=== PATIENT | male | born 1990 | race Caucasian/White ===

== ENCOUNTER 2017-07-12 21:23 | Emergency (ER) | payer SELFPAY ==
--- NOTE | 2017-07-12 22:50 | EKG REPORT ---
SEVERITY:- NORMAL ECG - SINUS RHYTHM : Confirmed by: Ira Perez 12-Jul-2017 22:49:48
--- NOTE | 2017-07-12 22:55 | ER Document Report ---
ED General - General Chief Complaint: Chest Pain Stated Complaint: CHEST PAIN Time Seen by Provider: 07/12/17 22:44 Notes: Patient is a 27-year-old male comes emergency department for chief complaint of chest pain. Symptoms started yesterday, has become more constant. He describes the pain as a sharp sensation starting near his left lower ribs and working its way up up his left side towards his neck and then down towards underneath his armpit. He states it feels like it is internal. It is somewhat worse when moving his left arm. He denies trauma, cough, shortness of breath, recent fever or cold, nausea or vomiting. Denies change with eating other than feeling full. He denies any daily medications. He chews dip, does not smoke, denies alcohol, denies recreational drug abuse. He denies any personal past medical history, he denies any history of early cardiac disease or blood clots in the family. - Related Data Allergies/Adverse Reactions: azithromycin Allergy (Verified 07/12/17 22:46) erythromycin base Allergy (Verified 07/12/17 22:46) Past Medical History - General Information source: Patient - Social History Smoking Status: Never Smoker Frequency of alcohol use: None Drug Abuse: None Lives with: Family Family History: Reviewed & Not Pertinent Patient has suicidal ideation: No Patient has homicidal ideation: No - Medical History Medical History: Negative Renal/ Medical History: Denies: Hx Peritoneal Dialysis Surgical Hx: Negative - Immunizations Immunizations up to date: Yes Hx Diphtheria, Pertussis, Tetanus Vaccination: Yes Review of Systems - Review of Systems Constitutional: No symptoms reported EENT: No symptoms reported Cardiovascular: See HPI Respiratory: See HPI Gastrointestinal: No symptoms reported Genitourinary: No symptoms reported Male Genitourinary: No symptoms reported Musculoskeletal: See HPI Skin: No symptoms reported Hematologic/Lymphatic: No symptoms reported Neurological/Psychological: No symptoms reported Physical Exam - Vital signs Vitals: Temp Pulse Resp BP Pulse Ox 98.8 F 54 L 16 120/65 99 07/12/17 21:41 07/12/17 21:41 07/12/17 21:41 07/12/17 21:41 07/12/17 21:41 Interpretation: Normal - General General appearance: Appears well, Alert - HEENT Head: Normocephalic, Atraumatic Eyes: Normal Pupils: PERRL - Respiratory Respiratory status: No respiratory distress Chest status: Other - Patient seems to have mild tenderness when moving his left arm and range of motion, I do not appreciate any specific palpable tenderness over the chest Breath sounds: Normal Chest palpation: Normal - Cardiovascular Rhythm: Regular, Bradycardia Heart sounds: Normal auscultation, S1 appreciated, S2 appreciated Murmur: No - Abdominal Inspection: Normal Distension: No distension Bowel sounds: Normal Tenderness: Nontender. No: Tender, Guarding Organomegaly: No organomegaly - Back Back: Normal, Nontender. No: Tender, Vertebra tenderness - Extremities General upper extremity: Normal inspection, Nontender, Normal color, Normal ROM , Normal temperature General lower extremity: Normal inspection, Nontender, Normal color, Normal ROM , Normal temperature, Normal weight bearing. No: John's sign - Neurological Neuro grossly intact: Yes Cognition: Normal Orientation: AAOx4 Burns Coma Scale Eye Opening: Spontaneous Sung Coma Scale Verbal: Oriented Burns Coma Scale Motor: Obeys Commands Sung Coma Scale Total: 15 Speech: Normal Motor strength normal: LUE, RUE, LLE, RLE Sensory: Normal - Psychological Associated symptoms: Normal affect, Normal mood - Skin Skin Temperature: Warm Skin Moisture: Dry Skin Color: Normal Course - Re-evaluation Re-evalutation: EKG shows sinus rhythm with no T-wave inversions or ST segment changes in leads. Chest x-ray unremarkable. Patient seems to not have pain on palpation on exam, as a result CBC, chemistry, troponin were run. All of these are unremarkable. Urine drug screen is negative. Patient tells me now that when he took 400 mg of ibuprofen pain resolved but then it came back and he came in for evaluation. Based on his negative workup, worst pain on movement, and this reported history I strongly believe this is musculoskeletal. He states he wants to continue taking ibuprofen, he was prescribed this. Discussed follow-up instructions, return precautions. Patient states understanding and agreement. - Vital Signs Vital signs: Temp Pulse Resp BP Pulse Ox 98.8 F 54 L 21 H 113/68 97 07/12/17 21:41 07/12/17 21:41 07/13/17 01:02 07/13/17 01:02 07/13/17 01:02 - Laboratory Result Diagrams: 07/12/17 23:25 07/12/17 23:25 Discharge - Discharge Clinical Impression: Chest pain Qualifiers: Chest pain type: unspecified Qualified Code(s): R07.9 - Chest pain, unspecified Condition: Stable Disposition: HOME, SELF-CARE Additional Instructions: Your EKG, chest x-ray, and workup did not show any concerning abnormalities. Based on your examination and symptoms this appears to be musculoskeletal. I recommend taking the ibuprofen prescribed with food, stay hydrated, avoid intense lifting more intense physical activity until symptoms improve or resolve. Follow-up with primary care. Return for any concerning or worsening symptoms including difficulty breathing, vomiting, fever, or any other concerning symptoms. Prescriptions: Ibuprofen 800 mg PO Q8 PRN #30 tablet PRN Reason: Forms: Return to Work
[2017-07-12 23:41] LABS: ABSOLUTE EOSINOPHILS # (AUTO) 0.2 10^3/uL (0.0-0.6); ABSOLUTE LYMPHOCYTES (AUTO) 2.3 10^3/uL (0.5-4.7); ABSOLUTE MONOCYTES (AUTO) 0.8 10^3/uL (0.1-1.4); ABSOLUTE NEUT (AUTO) 4.5 10^3/uL (1.7-8.2); BASOPHILS % (AUTO) 0.5 % (0-2); EOSINOPHILS % (AUTO) 2.3 % (0-6); HEMATOCRIT 40.3 % (37.9-51.0); HEMOGLOBIN 14.3 g/dL (13.5-17.0); HGB HCT DIFFERENCE 2.6; LYMPHOCYTES % (AUTO) 29.8 % (13-45); MEAN CORPUSCULAR HEMOGLOBIN 32.1 pg (27.0-33.4); MEAN CORPUSCULAR HGB CONC 35.5 g/dL (32.0-36.0); MEAN CORPUSCULAR VOLUME 91 fl (80-97); MONOCYTES % (AUTO) 10.2 % (3-13); RED BLOOD COUNT 4.45 10^6/uL (4.35-5.55); RED CELL DISTRIBUTION WIDTH 12.9 % (11.5-14.0); SEGMENTED NEUTROPHILS % (AUTO) 57.2 % (42-78); WHITE BLOOD COUNT 7.9 10^3/uL (4.0-10.5)
[2017-07-12 23:49] LABS: ALANINE AMINOTRANSFERASE 61 U/L (21-72); ALBUMIN 4.2 g/dL (3.5-5.0); ALKALINE PHOSPHATASE 59 U/L (38-126); ANION GAP 10 (5-19); ASPARTATE AMINO TRANSFERASE 24 U/L (17-59); BILIRUBIN,DIRECT 0.4 mg/dL (0.0-0.4); BILIRUBIN,TOTAL 0.6 mg/dL (0.2-1.3); BLOOD UREA NITROGEN 15 mg/dL (7-20); CALCIUM 9.7 mg/dL (8.4-10.2); CARBON DIOXIDE 28 mmol/L (22-30); CHLORIDE 104 mmol/L (98-107); CREATININE RESULT 0.84 mg/dL (0.52-1.25); GLUCOSE 96 mg/dL (75-110); POTASSIUM 3.8 mmol/L (3.6-5.0); SODIUM 142.2 mmol/L (137-145)
[2017-07-13 00:39] LABS: URINE BARBITURATES SCREEN NEGATIVE; URINE METHADONE SCREEN NEGATIVE; URINE OPIATES LOW NEGATIVE; URINE PHENCYCLIDINE SCREEN NEGATIVE
--- NOTE | 2017-07-13 01:28 | RADIOLOGY REPORT (SQ) ---
EXAM DESCRIPTION: CHEST PA/LAT CLINICAL HISTORY: 27 years, Male, chest pain COMPARISON: None. NUMBER OF VIEWS: Two TECHNIQUE: PA and lateral. LIMITATIONS: None. FINDINGS: Adequate lung volumes, clear parenchyma, normal cardiac silhouette. Intact bony thorax. IMPRESSION: Normal chest radiographs. 2011 [employer]- All Rights Reserved
[2017-07-13 01:41] VITALS: BP 113/68
== END 2017-07-13 01:15 | disposition home or self-care (01) ==
LOC: ER 21:23
DX: R07.9 Chest pain, unspecified (principal); Z88.1 Allergy status to other antibiotic agents
CPT/HCPCS: 36415; 71020; 80053; 80307; 84484; 85025; 93005; 93010; 99285

== ENCOUNTER 2017-10-07 15:48 | Emergency (ER) | payer OTHER ==
--- NOTE | 2017-10-07 16:17 | ER Document Report ---
ED Medical Screen (RME) - General Chief Complaint: Chest Pain Stated Complaint: SHORTNESS OF BREATH Time Seen by Provider: 10/07/17 16:12 Notes: Patient says he has been experiencing left chest pain into his left shoulder for the past 2 weeks. The pain is there all day long, every day. It is located primarily under the left breast. He says that the pain is associated with his feeling short of breath. He had a similar episode of same pain back in July and was seen here and worked up and nothing was found to be abnormal and after about 5 days, symptom went away. Patient recalls no unusual activity or heavy lifting or injury that could have caused his symptoms. He is in between jobs at this time and not doing any physical labor. Denies any cough or cold or chest congestion. No leg pain or swelling I asked the patient if he was feeling stressed in any way and he said not really. He says he just moved into a big beautiful new home and did not feel like he was depressed or having anxiety or stress. I just wonder how he is able to afford a big beautiful new home when he does not have a job currently and how that does not cause him some kind of stress. TRAVEL OUTSIDE OF THE [place] IN LAST 30 DAYS: No - Related Data Allergies/Adverse Reactions: erythromycin base Allergy (Mild, Verified 10/07/17 15:51) azithromycin Allergy (Verified 10/07/17 15:51) Past Medical History - Social History Chew tobacco use (# tins/day): Yes Frequency of alcohol use: None Drug Abuse: None Renal/ Medical History: Denies: Hx Peritoneal Dialysis - Immunizations Immunizations up to date: Yes Hx Diphtheria, Pertussis, Tetanus Vaccination: Yes Physical Exam - Vital signs Vitals: Temp Pulse Resp BP Pulse Ox 98.8 F 75 18 140/75 H 98 10/07/17 16:04 10/07/17 16:04 10/07/17 16:04 10/07/17 16:04 10/07/17 16:04 Course - Vital Signs Vital signs: Temp Pulse Resp BP Pulse Ox 98.8 F 75 18 140/75 H 98 10/07/17 16:04 10/07/17 16:04 10/07/17 16:04 10/07/17 16:04 10/07/17 16:04
[2017-10-07 16:43] LABS: ABSOLUTE EOSINOPHILS # (AUTO) 0.1 10^3/uL (0.0-0.6); ABSOLUTE LYMPHOCYTES (AUTO) 1.4 10^3/uL (0.5-4.7); ABSOLUTE MONOCYTES (AUTO) 0.8 10^3/uL (0.1-1.4); ABSOLUTE NEUT (AUTO) 6.1 10^3/uL (1.7-8.2); BASOPHILS % (AUTO) 0.2 % (0-2); EOSINOPHILS % (AUTO) 1.1 % (0-6); HEMATOCRIT 41.4 % (37.9-51.0); HEMOGLOBIN 14.4 g/dL (13.5-17.0); LYMPHOCYTES % (AUTO) 16.9 % (13-45); MEAN CORPUSCULAR HEMOGLOBIN 31.8 pg (27.0-33.4); MEAN CORPUSCULAR HGB CONC 34.8 g/dL (32.0-36.0); MEAN CORPUSCULAR VOLUME 91 fl (80-97); MONOCYTES % (AUTO) 9.2 % (3-13); PLATELET COUNT 236 10^3/uL (150-450); RED BLOOD COUNT 4.54 10^6/uL (4.35-5.55); RED CELL DISTRIBUTION WIDTH 12.9 % (11.5-14.0); SEGMENTED NEUTROPHILS % (AUTO) 72.6 % (42-78); TOTAL CELLS COUNTED % (AUTO) 100 %; WHITE BLOOD COUNT 8.4 10^3/uL (4.0-10.5)
--- NOTE | 2017-10-07 16:55 | RADIOLOGY REPORT (SQ) ---
EXAM DESCRIPTION: CHEST PA/LAT COMPLETED DATE/TIME: 10/07/2017 4:30 pm REASON FOR STUDY: Left lower anter chest/rib pain, under left breast COMPARISON: None. EXAM PARAMETERS: NUMBER OF VIEWS: two views TECHNIQUE: Digital Frontal and Lateral radiographic views of the chest acquired. RADIATION DOSE: NA LIMITATIONS: none FINDINGS: LUNGS AND PLEURA: There is blunting of the left costophrenic angle, which may represent a small pleural effusion and/or consolidation/atelectasis. The lungs are otherwise clear and evenly ae rated. No pneumothorax. MEDIASTINUM AND HILAR STRUCTURES: No masses or contour abnormalities. HEART AND VASCULAR STRUCTURES: Heart normal size. No evidence for failure. BONES: No acute findings. HARDWARE: None in the chest. OTHER: No other significant finding. IMPRESSION: In the appropriate clinical setting, constellation of findings may represent a developin g left lower lobe pneumonia. However, in the setting of chest wall pain, these findings may represen t atelectasis due to submaximal inspiratory effort. TECHNICAL DOCUMENTATION: JOB ID: [id number] [employer]- All Rights Reserved Reading location - IP/workstation name: [email or web address]
[2017-10-07 16:56] LABS: ALANINE AMINOTRANSFERASE 46 U/L (21-72); ALBUMIN 4.4 g/dL (3.5-5.0); ALKALINE PHOSPHATASE 62 U/L (38-126); ANION GAP 9 (5-19); ASPARTATE AMINO TRANSFERASE 21 U/L (17-59); BILIRUBIN,DIRECT 0.1 mg/dL (0.0-0.4); BILIRUBIN,TOTAL 0.6 mg/dL (0.2-1.3); BLOOD UREA NITROGEN 10 mg/dL (7-20); CARBON DIOXIDE 31 mmol/L (22-30); CHLORIDE 103 mmol/L (98-107); GLUCOSE 95 mg/dL (75-110); POTASSIUM 3.9 mmol/L (3.6-5.0); SODIUM 143.2 mmol/L (137-145); TOTAL PROTEIN 6.9 g/dL (6.3-8.2)
[2017-10-07 17:10] LABS: CREATINE KINASE MB < 0.22 ng/mL (<4.55); TROPONIN I < 0.012 ng/mL
--- NOTE | 2017-10-07 17:45 | ER Document Report ---
ED General - General Chief Complaint: Chest Pain Stated Complaint: SHORTNESS OF BREATH Time Seen by Provider: 10/07/17 16:12 Mode of Arrival: Ambulatory Information source: Patient Notes: Patient presents emergency department with complaints of left-sided chest pain left shoulder pain left-sided back pain and shortness of breath. Patient reports he was evaluated for this back in July. He reports the pain went away then came back and for the past couple weeks has been increasing. He reports pain is constantly in his chest but the shortness of breath tends to go away when he stands up. He also reports that when he takes a deep breath the pain increases. Denies other symptoms such as fever nausea vomiting diarrhea. Denies trauma, reports he is not working currently, no recent strenuous exercise. Denies history of cardiac disease. Denies history of family cardiac disease. Patient does admit to using cocaine 1 year ago one time he reports. Reports he does not take drugs or drink alcohol at this time. Does use dip. TRAVEL OUTSIDE OF THE [place] IN LAST 30 DAYS: No - HPI Onset: Other Onset/Duration: Persistent Quality of pain: Pressure, Sharp Severity: Moderate Pain Level: 3 Associated symptoms: None Exacerbated by: Denies Relieved by: Denies Similar symptoms previously: Yes Recently seen / treated by doctor: No - Related Data Allergies/Adverse Reactions: erythromycin base Allergy (Mild, Verified 10/07/17 15:51) azithromycin Allergy (Verified 10/07/17 15:51) Past Medical History - General Information source: Patient - Social History Smoking Status: Unknown if Ever Smoked Cigarette use (# per day): No - Chew tobacco use (# tins/day): Yes - dip Frequency of alcohol use: None Drug Abuse: None Occupation: none Lives with: Family Family History: Reviewed & Not Pertinent Patient has suicidal ideation: No Patient has homicidal ideation: No - Medical History Medical History: Negative Renal/ Medical History: Denies: Hx Peritoneal Dialysis Surgical Hx: Negative - Immunizations Immunizations up to date: Yes Hx Diphtheria, Pertussis, Tetanus Vaccination: Yes Review of Systems - Review of Systems Notes: Review HPI for review of systems., All other systems negative Physical Exam - Vital signs Vitals: Temp Pulse Resp BP Pulse Ox 98.8 F 75 18 140/75 H 98 10/07/17 16:04 10/07/17 16:04 10/07/17 16:04 10/07/17 16:04 10/07/17 16:04 - Notes Notes: PHYSICAL EXAMINATION: GENERAL: Well-appearing and in no acute distress HEAD: Atraumatic, normocephalic. EYES: Pupils equal round , extraocular movements intact, sclera anicteric, conjunctiva are normal. ENT: nares patent, . Moist mucous membranes. NECK: Normal range of motion, supple without lymphadenopathy LUNGS: CTAB and equal. No wheezes rales or rhonchi. no pain with palpation HEART: Regular rate and rhythm without murmurs ABDOMEN: Soft, no tenderness. No guarding, no rebound BACK: No pain with palpation EXTREMITIES: Normal range of motion, no pitting edema. No cyanosis. NEUROLOGICAL: Cranial nerves grossly intact. Normal sensory/motor exams. PSYCH: Normal mood, normal affect. SKIN: Warm, Dry, normal turgor, no rashes or lesions noted Course - Re-evaluation Re-evalutation: 10/07/[address] Ko regarding pleural effusion. She agrees with plan to discharge with close follow-up. I instructed patient on pleural effusions. I instructed patient the possibility of cancer. He verbalized understanding all instructions. He denies hx of IV drug use. I stressed the importance of follow- up radiological exams. He has [facility]. I instructed patient to return to the emergency department should he be unable to have repeat radiological exam. I also instructed patient to return for any kind of difficulty breathing shortness of breath increased chest pain. His was at his side and she verbalized understanding to all instructions. - Vital Signs Vital signs: Temp Pulse Resp BP Pulse Ox 98.7 F 72 16 136/72 H 99 10/07/17 19:46 10/07/17 19:46 10/07/17 19:46 10/07/17 19:46 10/07/17 19:46 - Laboratory Result Diagrams: 10/07/17 16:20 10/07/17 16:20 Laboratory results interpreted by me: 10/07/17 16:20 Carbon Dioxide 31 H Discharge - Discharge Clinical Impression: Pleural effusion Chest pain Qualifiers: Chest pain type: unspecified Qualified Code(s): R07.9 - Chest pain, unspecified Condition: Stable Disposition: HOME, SELF-CARE Instructions: Pleural Effusion ([facility]) Additional Instructions: *You have been evaluated for chest pain, pleural effusion *At this time we are unsure why you have a pleural effusion. You must follow up with a repeat radiological exam to ensure this pleural effusion is gone *Follow up with a primary care provider within one week for evaluation *Return to ED for worsening condition, changes, needs *Return to ED if not better in 24 hours Monitor your blood pressure. Your blood pressure was elevated today. This may be because you were anxious, in pain or because you need medication. It is important to follow up with your primary care provider for full evaluation. Forms: Elevated Blood Pressure
--- NOTE | 2017-10-07 17:59 | EKG REPORT ---
SEVERITY:- NORMAL ECG - SINUS RHYTHM : Confirmed by: Jase Le MD 07-Oct-2017 17:58:38
--- NOTE | 2017-10-07 18:29 | RADIOLOGY REPORT (SQ) ---
EXAM DESCRIPTION: CT CHEST WITH COMPLETED DATE/TIME: 10/07/2017 6:09 pm REASON FOR STUDY: sob, cp COMPARISON: None. TECHNIQUE: CT scan of the chest performed using helical scanning technique with dynamic intravenous contrast injection. Images reviewed with lung, soft tissue and bone windows. Reconstructed coronal and sagittal MPR images reviewed. All images stored on PACS. All CT scanners at this facility use dose modulation, iterative reconstruction, and/or weight based d osing when appropriate to reduce radiation dose to as low as reasonably achievable (ALARA). [facility]: Dose Right [facility]: CareDose [facility]: Dose Right [facility]: Teradose 4D [facility]: SQMOS CONTRAST TYPE AND DOSE: contrast/concentration: Isovue 370.00 mg/ml; Total Contrast Delivered: 80.0 ml; Total Saline Delivered: 55.0 ml 80 mL Isovue 370- low osmolar. RENAL FUNCTION: None required. The patient is less than 50 years old. RADIATION DOSE: CT Rad equipment meets quality standard of care and radiation dose reduction techniq ues were employed. CTDIvol: 18.4 mGy. DLP: 682 mGy-cm. . LIMITATIONS: None. FINDINGS: LUNGS AND PLEURA: There is a small, layering left-sided pleural effusion with some associa godfrey compressive atelectasis. The lungs are otherwise clear HILAR AND MEDIASTINAL STRUCTURES: No identified masses or abnormal nodes. HEART AND VASCULAR STRUCTURES: No aneurysm or dissection. No central pulmonary emboli. No pericardi al effusion. HARDWARE: None in the chest. UPPER ABDOMEN: No significant findings. Limited exam. THYROID AND OTHER SOFT TISSUES: No masses. No adenopathy. BONES: No significant finding. OTHER: No other significant finding. IMPRESSION: Small left-sided pleural effusion. Exam is otherwise unremarkable. TECHNICAL DOCUMENTATION: JOB ID: [id number] Quality ID # [id number]: Final reports with documentation of one or more dose reduction techniques (e.g., Au tomated exposure control, adjustment of the mA and/or kV according to patient size, use of iterative reconstruction technique) 2010 [employer]- All Rights Reserved Reading location - IP/workstation name: [email or web address]-
[2017-10-07 19:47] VITALS: BP 136/72
== END 2017-10-07 19:46 | disposition home or self-care (01) ==
LOC: ER 15:48
DX: J90 Pleural effusion, not elsewhere classified (principal); R07.89 Other chest pain; M25.512 Pain in left shoulder; M54.9 Dorsalgia, unspecified; R06.02 Shortness of breath; Z72.0 Tobacco use; Z88.1 Allergy status to other antibiotic agents
CPT/HCPCS: 36415; 71046; 71260; 80053; 82553; 83690; 84484; 85025; 85379; 93005; 93010; 99285